=== PATIENT | female | born 1970 | race Hispanic/Latino ===

== ENCOUNTER 2017-07-03 21:34 | Emergency (ER) | payer BC ==
[2017-07-03] MEDS ORDERED: ZOFRAN ODT PO ONE (22:25)
[2017-07-03 23:16] LABS: Bilirubin,Urine NEG (Negative); Blood,Urine NEG (Negative); Color,Urine Yellow (Yellow); Mucus,Urine FEW /HPF; Protein,Urine <15 mg/dL mg/dL (Negative); Urobilinogen,Urine < 2.0 mg/dL (<2.0)
[2017-07-03 23:18] LABS: Hematocrit 39.9 % (30.3-42.9); Hemoglobin 13.6 gm/dl (10.1-14.3); Mean Corpuscular HGB Conc 34 % (30-34); Mean Corpuscular Hemoglobin 31 pg (28-32); Mean Corpuscular Volume 90 fl (79-97); Platelet Count 262 K/mm3 (140-440); Red Blood Count 4.45 M/mm3 (3.65-5.03); Red Cell Distribution Width 13.2 % (13.2-15.2)
[2017-07-03] MEDS ORDERED: NACL 0.9% 1000 ML 1,000 ML IV ONE (23:50)
[2017-07-03] MEDS ORDERED: ZOFRAN IV ONE (23:50)
[2017-07-03] MEDS ORDERED: TORADOL IV ONE (23:50)
--- NOTE | 2017-07-03 23:54 | Emergency Department Report ---
ED General Adult HPI - General Chief complaint: Upper Respiratory Infection Stated complaint: FLU SYMPTOMS(BAD) Time Seen by Provider: 07/03/17 23:42 Source: patient Mode of arrival: Ambulatory Limitations: No Limitations - History of Present Illness Initial comments: Patient is a 46-year-old female history of carotid artery disease with a stent and hypertension. Patient presented to the ER with nausea vomiting and diarrhea and generalized body ache sore throat runny nose cough and congestion. Patient stated that she has sick contacts, her daughter just recently diagnosed with influenza B. Patient's symptoms started today. Patient denied any chest pain, shortness of breath, neck pain or stiffness. - Related Data Allergies Allergy/AdvReac Type Severity Reaction Status Date / Time No Known Allergies Allergy Unverified 07/03/17 22:24 ED Review of Systems ROS: Stated complaint: FLU SYMPTOMS(BAD) Other details as noted in HPI Comment: All other systems reviewed and negative Constitutional: denies: chills, fever ENT: throat pain, congestion Respiratory: cough. denies: shortness of breath, SOB with exertion, SOB at rest , stridor, wheezing Cardiovascular: denies: chest pain, palpitations, dyspnea on exertion Gastrointestinal: nausea, vomiting, diarrhea. denies: abdominal pain Genitourinary: denies: urgency, frequency, hematuria, discharge, abnormal menses , dyspareunia Skin: denies: rash, lesions Neurological: denies: headache, weakness, numbness, paresthesias, confusion, abnormal gait, vertigo ED Past Medical Hx - Past Medical History Hx Hypertension: Yes - Surgical History Hx Coronary Stent: Yes (x1 2009) Additional Surgical History: - Social History Smoking Status: Former Smoker Substance Use Type: Alcohol ED Physical Exam - General Limitations: No Limitations General appearance: alert, in no apparent distress - Head Head exam: Present: atraumatic, normocephalic, normal inspection - Eye Eye exam: Present: normal appearance, PERRL - ENT ENT exam: Present: normal exam, mucous membranes dry, mucous membranes moist - Neck Neck exam: Present: normal inspection. Absent: tenderness, meningismus, full ROM, lymphadenopathy - Respiratory Respiratory exam: Present: normal lung sounds bilaterally. Absent: respiratory distress, wheezes, rales, rhonchi, stridor, chest wall tenderness, accessory muscle use, decreased breath sounds, prolonged expiratory - Cardiovascular Cardiovascular Exam: Present: regular rate, normal rhythm, normal heart sounds - GI/Abdominal GI/Abdominal exam: Present: soft, normal bowel sounds. Absent: distended, tenderness, guarding, rebound, rigid, organomegaly, mass, bruit, pulsatile mass , hernia - Extremities Exam Extremities exam: Present: normal inspection, full ROM, normal capillary refill - Back Exam Back exam: Present: normal inspection, full ROM. Absent: tenderness, CVA tenderness (R), CVA tenderness (L), muscle spasm, paraspinal tenderness - Neurological Exam Neurological exam: Present: alert, oriented X3, CN II-XII intact, normal gait - Skin Skin exam: Present: warm, intact, normal color. Absent: cyanosis, diaphoretic ED Course Vital Signs 07/03/17 07/03/17 07/04/17 22:19 23:38 00:00 Temperature 98.3 F Pulse Rate 77 48 L Respiratory 18 13 Rate Blood Pressure 130/83 127/63 O2 Sat by Pulse 99 97 99 Oximetry 07/04/17 07/04/17 00:19 01:00 Temperature Pulse Rate 80 Respiratory 16 25 H Rate Blood Pressure 120/68 O2 Sat by Pulse 98 95 Oximetry - Reevaluation(s) Reevaluation #1: 07/04/17 02:31 Patient stated that she is feeling much better. No nausea no vomiting. No abdominal pain. I will treat her empirically for influenza since she have a relative with positive influenza B. ED Medical Decision Making - Lab Data Result diagrams: 07/03/17 22:54 07/03/17 22:54 Critical care attestation.: If time is entered above; I have spent that time in minutes in the direct care of this critically ill patient, excluding procedure time. ED Disposition Clinical Impression: Nausea & vomiting, Viral syndrome Disposition: DC-01 TO HOME OR SELFCARE Is pt being admited?: No Condition: Stable Instructions: Influenza (ED), Viral Syndrome (ED)
[2017-07-04 00:18] LABS: BUN/Creatinine Ratio 11; Blood Urea Nitrogen 8 mg/dL (7-17); Calcium 9.5 mg/dL (8.4-10.2); Hemolysis Index 13
[2017-07-04 01:15] VITALS: BP 120/68
== END 2017-07-04 02:53 | disposition home or self-care (01) ==
LOC: ED 21:34
DX: B34.9 Viral infection, unspecified (principal); R11.2 Nausea with vomiting, unspecified; I10 Essential (primary) hypertension; Z87.891 Personal history of nicotine dependence
CPT/HCPCS: 36415; 80048; 81001; 85027; 96361; 96374; 96375; 99283; J1885; J2405; J7030; Q0162